=== PATIENT | female | born 1960 | race Caucasian/White ===

== ENCOUNTER 2017-01-31 16:37 | Inpatient (IN) | payer OTHER, BC ==
[2017-01-31] MEDS ORDERED: HYDROCHLOROTHIA25 M1 PO (19:12)
[2017-01-31] MEDS ORDERED: PRINIVIL10 M1 PO (19:12)
[2017-01-31] MEDS ORDERED: FISH OIL 1,2001 EAC4 PO (19:13)
[2017-01-31] MEDS ORDERED: METAMUCIL FIBE3.4 G1 PO (19:13)
[2017-01-31] MEDS ORDERED: CINNAMON500 M1 PO (19:13)
[2017-01-31] MEDS ORDERED: ZOCOR40 M1 PO (19:13)
[2017-01-31] MEDS ORDERED: TOLTERODINE TART2 M3 PO (19:13)
[2017-01-31] MEDS ORDERED: ASPIR 8181 M1 PO (19:13)
[2017-01-31] MEDS ORDERED: PRENATAL-U CAPS1 CAP PO (19:14)
[2017-01-31] MEDS ORDERED: OMEPRAZOLE20 M3 PO (19:14)
[2017-01-31] MEDS ORDERED: CRANBERRY200 M1 PO (19:14)
[2017-01-31] MEDS ORDERED: VITAMIN D31000 UNI3 PO (19:14)
[2017-01-31 19:36] LABS: BASO % 0.5 % (0-2); BASO ABSOLUTE COUNT 0.1 tho/cmm (0.0-0.2); EOS % 2.7 % (0-7); EOSINOPHIL ABSOLUTE COUNT 0.3 tho/cmm (0.0-0.7); HCT-HEMATOCRIT 43.4 % (34.0-49.0); HGB-HEMOGLOBIN 14.7 gm/dl (12.0-15.5); IMMATURE GRANULOCYTES ABSOLUTE 0.02 tho/cmm (0-0.03); IMMATURE GRANULOCYTES PERCENT 0.2 % (0-0.3); LYMPH % 16.1 % (20-45); LYMPH ABSOLUTE COUNT 1.6 tho/cmm (0.8-4.5); MCH (MEAN CORPUSCULAR HGB) 28.9 pg (28.0-32.0); MCHC MEAN CORPUSCULAR HGB CONC 33.9 % (32.0-36.0); MCV (MEAN CELL VOLUME) 85.4 fl (82.0-96.0); MEAN PLATELET VOLUME 9.9 cmc (9.4-12.4); MONO % 12.6 % (0-12); MONOCYTE ABSOLUTE COUNT 1.3 tho/cmm (0.0-1.2); NEUTROPHIL ABSOLUTE COUNT 6.9 tho/cmm (1.6-8.0); NEUTROPHIL-AUTOMATED 6.9 tho/cmm (1.6-8.0); NEUTROPHILS % 67.9 % (40-80); PLATELET COUNT 225 tho/cmm (150-450); RED BLOOD COUNT 5.08 mil/cmm (4.00-5.20); RED CELL DISTRIBUTION WIDTH 14.4 % (12.4-16.4); WHITE BLOOD COUNT 10.2 tho/cmm (4.0-10.0)
[2017-01-31 19:51] LABS: ALB/GLOB RATIO 0.9 (0.8-2.0); ALBUMIN 4.2 g/dl (3.5-5.0); ALKALINE PHOSPHATASE 109 U/L (33-138); ALT/SGPT 38 U/L (12-78); BILIRUBIN,TOTAL 0.5 mg/dl (0-1.5); BLOOD UREA NITROGEN 17 mg/dl (6-24); CALCIUM 9.3 mg/dl (8.5-10.5); CARBON DIOXIDE-VENOUS 26 mmol/L (22-32); CHLORIDE 105 mmol/l (96-110); CREATININE 1.01 mg/dl (0.50-1.10); GLUCOSE 94 mg/dL (70-110); SODIUM 142 mmol/L (135-145); eGFR VALUE FOR BLACK 71 mL/Min
[2017-01-31 19:54] LABS: ANION GAP 15 mmol/L (0-20); AST/SGOT 29 U/L (10-40); POTASSIUM 3.6 mmol/L (3.7-5.1)
[2017-01-31 20:38] LABS: URINE BILIRUBIN NEGATIVE (NEG); URINE BLOOD SMALL (NEG); URINE GLUCOSE (UA) NEGATIVE (NEG); URINE KETONE NEGATIVE (NEG); URINE LEUKOCYTE ESTERASE NEGATIVE (NEG); URINE NITRITE NEGATIVE (NEG); URINE PH 6.5 (5.0-8.0); URINE PROTEIN LARGE (NEG); URINE SPECIFIC GRAVITY 1.015 (1.003-1.030)
[2017-01-31 20:47] LABS: URINE APPEARANCE HAZY; URINE COLOR YELLOW
[2017-01-31 20:49] LABS: URINE BACTERIA 2+; URINE RBC RARE /[HPF] (0-5); URINE WBC 0-3 /[HPF] (0-5)
[2017-01-31 20:50] LABS: URINE MUCUS 1+
[2017-02-01 00:49] LABS: PROCALCITONIN <0.05 ng/ml (0.05-0.09)
[2017-02-01 05:23] LABS: BASO % 0.2 % (0-2); EOS % 0.4 % (0-7); HCT-HEMATOCRIT 38.9 % (34.0-49.0); HGB-HEMOGLOBIN 12.9 gm/dl (12.0-15.5); IMMATURE GRANULOCYTES ABSOLUTE 0.02 tho/cmm (0-0.03); IMMATURE GRANULOCYTES PERCENT 0.2 % (0-0.3); LYMPH ABSOLUTE COUNT 0.7 tho/cmm (0.8-4.5); MCH (MEAN CORPUSCULAR HGB) 28.7 pg (28.0-32.0); MCHC MEAN CORPUSCULAR HGB CONC 33.2 % (32.0-36.0); MCV (MEAN CELL VOLUME) 86.6 fl (82.0-96.0); MONO % 3.8 % (0-12); MONOCYTE ABSOLUTE COUNT 0.3 tho/cmm (0.0-1.2); NEUTROPHIL ABSOLUTE COUNT 7.9 tho/cmm (1.6-8.0); NEUTROPHIL-AUTOMATED 7.9 tho/cmm (1.6-8.0); NEUTROPHILS % 87.4 % (40-80); PLATELET COUNT 215 tho/cmm (150-450); RED BLOOD COUNT 4.49 mil/cmm (4.00-5.20); RED CELL DISTRIBUTION WIDTH 14.6 % (12.4-16.4)
[2017-02-01 05:43] LABS: ANION GAP 13 mmol/L (0-20); BLOOD UREA NITROGEN 17 mg/dl (6-24); CALCIUM 8.6 mg/dl (8.5-10.5); CARBON DIOXIDE-VENOUS 26 mmol/L (22-32); CHLORIDE 105 mmol/l (96-110); CREATININE 0.97 mg/dl (0.50-1.10); POTASSIUM 3.7 mmol/L (3.7-5.1); SODIUM 140 mmol/L (135-145); eGFR VALUE FOR BLACK 75 mL/Min
[2017-02-01 05:44] LABS: GLUCOSE 149 mg/dL (70-110)
[2017-02-01 06:01] LABS: PROCALCITONIN <0.05 ng/ml (0.05-0.09)
[2017-02-02 06:16] LABS: BASO % 0.4 % (0-2); EOS % 1.9 % (0-7); EOSINOPHIL ABSOLUTE COUNT 0.2 tho/cmm (0.0-0.7); HCT-HEMATOCRIT 35.8 % (34.0-49.0); HGB-HEMOGLOBIN 11.6 gm/dl (12.0-15.5); IMMATURE GRANULOCYTES ABSOLUTE 0.03 tho/cmm (0-0.03); IMMATURE GRANULOCYTES PERCENT 0.4 % (0-0.3); LYMPH % 19.1 % (20-45); LYMPH ABSOLUTE COUNT 1.6 tho/cmm (0.8-4.5); MCH (MEAN CORPUSCULAR HGB) 28.2 pg (28.0-32.0); MCHC MEAN CORPUSCULAR HGB CONC 32.4 % (32.0-36.0); MCV (MEAN CELL VOLUME) 87.1 fl (82.0-96.0); MEAN PLATELET VOLUME 9.9 cmc (9.4-12.4); MONO % 12.4 % (0-12); NEUTROPHIL ABSOLUTE COUNT 5.4 tho/cmm (1.6-8.0); NEUTROPHIL-AUTOMATED 5.4 tho/cmm (1.6-8.0); NEUTROPHILS % 65.8 % (40-80); PLATELET COUNT 219 tho/cmm (150-450); RED BLOOD COUNT 4.11 mil/cmm (4.00-5.20); RED CELL DISTRIBUTION WIDTH 14.8 % (12.4-16.4); WHITE BLOOD COUNT 8.2 tho/cmm (4.0-10.0)
[2017-02-02 06:25] LABS: BLOOD UREA NITROGEN 12 mg/dl (6-24); CALCIUM 8.5 mg/dl (8.5-10.5); CARBON DIOXIDE-VENOUS 24 mmol/L (22-32); CHLORIDE 106 mmol/l (96-110); CREATININE 0.94 mg/dl (0.50-1.10); GLUCOSE 100 mg/dL (70-110); SODIUM 139 mmol/L (135-145); eGFR VALUE FOR BLACK 78 mL/Min
[2017-02-02 06:38] LABS: ANION GAP 13 mmol/L (0-20); MAGNESIUM 2.1 mg/dl (1.8-2.6); POTASSIUM 3.8 mmol/L (3.7-5.1)
[2017-02-03] MEDS ORDERED: CIPRO500 M2 PO (13:24)
== END 2017-02-03 15:45 | DRG 690 ==
LOC: EDMED 16:37 → EMR2 02-01 00:39 → 5WE 02-01 00:46
PROVIDERS: Internal Medicine; Physician Assistant; Registered Nurse; ADMIT Internal Medicine
DX: N13.6 Pyonephrosis (principal); I10 Essential (primary) hypertension; B96.1 Klebsiella pneumoniae [K. pneumoniae] as the cause of diseases classified elsewhere; E78.5 Hyperlipidemia, unspecified; E66.8 Other obesity; Z79.82 Long term (current) use of aspirin; Z88.2 Allergy status to sulfonamides; Z88.0 Allergy status to penicillin
CPT/HCPCS: J1956; J2270; J2405; J7030